=== PATIENT | male | born 1955 | race Caucasian/White ===

== ENCOUNTER 2017-12-20 08:32 | Emergency (ER) | payer OTHER ==
[~2017-12-20] VITALS: Ht 177.8 cm; Wt 79.4 kg
--- NOTE | 2017-12-20 08:35 | ED HAND/WRIST INJURY COMPLAINT ---
History of Present Illness General Chief Complaint: Upper Extremity Injury Stated Complaint: LEFT WRIST INJURY Source: patient Exam Limitations: no limitations Vital Signs & Intake/Output Vital Signs & Intake/Output Vital Signs Date Time Temp Pulse Resp B/P B/P Pulse O2 O2 Flow FiO2 Mean Ox Delivery Rate 12/20 0839 97.2 86 18 122/80 96 Room Air Allergies Coded Allergies: No Known Allergies (12/20/17) Triage Nurses Notes Reviewed? yes Occurred: yesterday Duration: day(s): Timing: recent history Injury Environment: home Severity: moderate Pain/Injury Location: Left: Wrist, Hand. Method of Injury: twisted HPI: 62yo male presents to ED complaining of left wrist pain. PAtient states he was drilling and the drill got stuck and caused him to twist his left hand/wrist. This injury occurred last night. Since then the patient reports increasing swelling and pain. Patient took and advil last night which did help with his pain. Patient had a wrist brace in his home which he has been wearing since the injury. The patient denies fall, numbness, bleeding, bruising. (Tracy Nielsen) Past History Travel History Traveled to [place] past 21 day No Medical History Any Pertinent Medical History? see below for history Neurological: NONE Psychiatric: substance abuse Surgical History Surgical History: non-contributory Psychosocial History Who do you live with Family What is your primary language Mongolian Family History Hx Contributory? No (Tracy Nielsen) Review of Systems Review of Systems Constitutional: Reports: no symptoms. EENTM: Reports: no symptoms. Respiratory: Reports: no symptoms. Cardiovascular: Reports: no symptoms. GI: Reports: no symptoms. Genitourinary: Reports: no symptoms. Musculoskeletal: Reports: see HPI. Skin: Reports: no symptoms. Neurological/Psychological: Reports: no symptoms. Hematologic/Endocrine: Reports: no symptoms. Immunologic/Allergic: Reports: no symptoms. All Other Systems: Reviewed and Negative (Tracy Nielsen) Physical Exam Physical Exam General Appearance: well developed/nourished, no apparent distress, alert, awake Head: atraumatic, normal appearance Eyes: Bilateral: normal appearance. Ears, Nose, Throat: hearing grossly normal Neck: normal inspection, supple, full range of motion Cardiovascular/Respiratory: normal peripheral pulses, no respiratory distress Back: normal inspection, normal range of motion Shoulder Left: normal range of motion, normal inspection Shoulder Right: normal range of motion, normal inspection Elbow Left: normal range of motion, normal inspection, NONTENDER Elbow Right: normal range of motion, normal inspection Forearm Left: normal range of motion, normal inspection, NONTENDER Forearm Right: normal range of motion, normal inspection Wrist Left: normal range of motion, normal inspection, NONTENDER Wrist Right: normal range of motion, normal inspection Hand Left: SWELLING AND TENDERNESS TO DORSUM OF HAND, NORMAL RANGE OF MOTION OF FINGERS Hand Right: normal inspection, normal range of motion Neurologic/Tendon: normal sensation, normal motor functions, normal tendon functions Skin: intact, normal color, warm/dry (Alma TYLER,Tracy Torres) Progress Differential Diagnosis: contusion, dislocation, fracture, sprain Plan of Care: Orders Procedure Date/time Status XRY-WRIST COMPLETE-LEFT 12/21 839 Active XRY-HAND, 3 View LEFT 12/21 839 Active Suspicion for fracture at base of second metacarpal bone, I discussed these findings with radiologist Dr. Gong in person and we reviewed the patient's xrays. He agrees, also possible fracture of base of fourth metacarpal bone. Patient was placed in splint by myself and referred to show list for further evaluation. He is neurovascularly intact, no acute distress. Patient agrees with plan of care. Diagnostic Imaging: Viewed by Me: Radiology Read. Discussed w/RAD: Radiology Read. Radiology Impression: PATIENT: WALDEMAR TONY PRESENT AGE : 62 PATIENT ACCOUNT NO: [id number] : 54 LOCATION: [facility], [place] ORDERING PHYSICIAN: Tracy TYLER SERVICE DATE: 12/20/17 EXAM TYPE: RAD - XRY-HAND, LEFT; XRY-WRIST COMPLETE-LEFT ADDENDUM: EXAMINATIONS: LEFT WRIST 4 VIEWS LEFT HAND 3 VIEWS CLINICAL INFORMATION: Left wrist and hand pain and swelling. COMPARISON: None. TECHNIQUE: AP, lateral, oblique and scaphoid views of the left were obtained. PA, lateral, oblique views of the left hand were obtained. FINDINGS: Left wrist: There is irregularity at the base of the second metacarpal laterally, with an area of linear lucency. This may be consistent with a nondisplaced fracture. There is moderate soft tissue swelling over the carpometacarpal region. Slight irregularity of the proximal contour of the fifth metacarpal may be consistent sequelae of prior trauma. There is narrowing of the STT joint with sclerosis and osteophytes. There is no displacement of the pronator fat pad. Left hand: There is normal alignment of the osseous structures. There is irregularity of the base of the second metacarpal laterally. There is equivocal lucency and irregularity at the base of the fourth metacarpal. Slight irregularity of the proximal contour of the fifth metacarpal may be consistent sequelae of prior trauma. There is mild narrowing of multiple DIP joints consistent with degenerative changes. There is moderate soft tissue swelling over the dorsal metacarpal region. There are no radiodense foreign bodies. IMPRESSION: 1. There are areas of irregularity with lucency at the bases of the second and fourth metatarsals, which may be consistent with acute fractures. There is moderate soft tissue swelling over the carpometacarpal region. 2. There are no radiopaque foreign bodies. 3. This critical result was discussed with Tracy Marquez in person on 12/20/2017 at 9:40 AM and it was ascertained that the content and urgency of the report was understood at the time of direct communication. Addendum Signed by: Rush Gong MD 12/20/17 0939 EXAMINATIONS: LEFT WRIST 4 VIEWS LEFT HAND 3 VIEWS CLINICAL INFORMATION: Left wrist and hand pain and swelling. COMPARISON: None. TECHNIQUE: AP, lateral, oblique and scaphoid views of the left were obtained. PA, lateral, oblique views of the left hand were obtained. FINDINGS: Left wrist: There are no fractures or dislocations. There is narrowing of the STT joint with sclerosis and osteophytes There is no significant soft tissue swelling. There is no displacement of the pronator fat pad. Left hand: There is normal alignment of the osseous structures. No fractures are demonstrated. There is mild narrowing multiple DIP joints consistent with degenerative changes. There is mild soft tissue swelling over the dorsal metacarpal region. There are no radiodense foreign bodies. IMPRESSION: 1. There are no acute fractures or subluxations. There are no radiodense foreign bodies. 2. There is mild soft tissue swelling over the dorsal metacarpal region. DICTATED BY: Rush Gong MD DATE/TIME DICTATED:12/20/17913 [employer] INTERPRETIVE SPECIALIST:ARABELLA DATE/TIME TRANSCRIBED:12/20/17913 CONFIDENTIAL, DO NOT COPY WITHOUT APPROPRIATE AUTHORIZATION. <Electronically signed in Other Vendor System> SIGNED BY: Rush Gong MD 12/20/17921 (Tracy Nielsen) Departure Departure Disposition: HOME OR SELF CARE Condition: Stable Clinical Impression Primary Impression: Hand injury Qualifiers: Encounter type: initial encounter Laterality: left Qualified Code: S69.92XA - Unspecified injury of left wrist, hand and finger(s), initial encounter Secondary Impressions: Fracture of second metacarpal bone Qualifiers: Encounter type: initial encounter Fracture type: closed Metacarpal location: base Fracture alignment: nondisplaced Laterality: left Qualified Code: S62.341A - Nondisplaced fracture of base of second metacarpal bone, left hand, initial encounter for closed fracture Referrals: Sharon Carroll APRN (PCP/Family) Yuriy ESCAMILLA,Seth Dyson Additional Instructions: You may continue Advil for your hand pain and swelling. Wear splint until you follow up with hand specialist. Return if you have any worsening symptoms or concerns. Please note that there might be incidental findings in your evaluation that are unrelated to the current emergency department visit. Please notify your primary care doctor about this emergency department visit in order to obtain and review all of the testing performed so that these incidental findings can be monitored as needed. If you had an x-ray performed, please understand that some fractures may not be seen on the initial set of x-rays. If your symptoms persist you might need a repeat set of x-rays to check for such a fracture. If you had a laceration evaluated, please understand that foreign bodies such as glass or wood may not be visible to the naked eye or on plain x-rays. If the wound becomes red, swollen, increasingly more painful or if there is any drainage from the wound, please have it reevaluated by a physician for the possibility of a retained foreign body. If you're unable to follow up as outlined in the discharge instructions please return to the emergency department. Thank you for choosing the [facility] Emergency Department for your care. It was a pleasure to serve you today. Departure Forms: Customer Survey General Discharge Information (Tracy Nielsen) PA/DIRECTOR PROSPECT Co-Sign Statement Statement: ED Attending supervision documentation- [] I saw and evaluated the patient. I have also reviewed all the pertinent lab results and diagnostic results. I agree with the findings and the plan of care as documented in the PA's/DIRECTOR PROSPECT's documentation. [X] I have reviewed the ED Record and agree with the PA's/DIRECTOR PROSPECT's documentation. [] Additions or exceptions (if any) to the PAs/DIRECTOR PROSPECT's note and plan are summarized below: [] (Roberto Baker DO) Procedures Splinting Location: left hand Manual Alignment Performed: No Hand-Made Type: orthoglass Splint: volar Splint Applied By: splint applied by me Pre-Proc Neuro Vasc Exam: normal Post-Proc Neuro Vasc Exam: normal (Alma TYLER,Tracy Torres)
[2017-12-20 08:39] VITALS: BP 122/80
--- NOTE | 2017-12-20 09:22 | RADIOLOGY REPORT ---
EXAMINATIONS: LEFT WRIST 4 VIEWS LEFT HAND 3 VIEWS CLINICAL INFORMATION: Left wrist and hand pain and swelling. COMPARISON: None. TECHNIQUE: AP, lateral, oblique and scaphoid views of the left were obtained. PA, lateral, oblique views of the left hand were obtained. FINDINGS: Left wrist: There are no fractures or dislocations. There is narrowing of the STT joint with sclerosis and osteophytes There is no significant soft tissue swelling. There is no displacement of the pronator fat pad. Left hand: There is normal alignment of the osseous structures. No fractures are demonstrated. There is mild narrowing multiple DIP joints consistent with degenerative changes. There is mild soft tissue swelling over the dorsal metacarpal region. There are no radiodense foreign bodies. IMPRESSION: 1. There are no acute fractures or subluxations. There are no radiodense foreign bodies. 2. There is mild soft tissue swelling over the dorsal metacarpal region.
== END 2017-12-20 09:56 ==
LOC: ERH 08:32
DX: S69.92XA Unspecified injury of left wrist, hand and finger(s), initial encounter (principal); S62.341A Nondisplaced fracture of base of second metacarpal bone, left hand, initial encounter for closed fracture; X50.9XXA Other and unspecified overexertion or strenuous movements or postures, initial encounter; Y93.89 Activity, other specified; Y92.009 Unspecified place in unspecified non-institutional (private) residence as the place of occurrence of the external cause
CPT/HCPCS: 73110-LT; 73130-LT